=== PATIENT | male | born 1945 | race Caucasian/White ===

== ENCOUNTER → 2018-04-24 | Outpatient (CLI) | payer MEDICARE ==
--- NOTE | 2018-04-24 15:21 | PN ---
PROGRESS NOTE Hilton is 70 with obstructive sleep apnea, severe with an AHI of 87, currently on a BiPAP pressure of 18/14. Doing well. No complaints at all. He is using the Gross LT nose pillows and he is looking for alternatives. He is averaging more than 6 hours of sleep every night. He goes to bed around 11 o'clock, wakes up between 5 and 6 o'clock in the morning. He wakes up refreshed and alert during the day. No major hypersomnia or sleepiness and treatments continues to be successful and the patient is still benefitting from the treatment. He is seeking alternative masks, however, other than the Gross LT. His current [place] Score is at 9. PHYSICAL EXAMINATION: His current vital signs are as follows: His BP is 121/54, pulse 76, respirations 16, temperature 97.7, saturation 95% on room air. GENERAL APPEARANCE: Calm, comfortable, no acute distress. Head is atraumatic, normocephalic. NECK: Supple. Short Mallampati class IV. There is no goiter or neck mass. LUNGS: Clear to auscultation. HEART: Sounds regular rhythm. Normal S1, S2. No S3. No murmurs. ABDOMEN: Soft, nontender. No organomegaly. EXTREMITIES: No edema. No cyanosis or clubbing. NEUROLOGIC: AO x3. No focal neurological deficits. SKIN: Negative for any wounds or ulcerations. PSYCHIATRIC: Negative for anxiety or depression. REVIEW OF SYSTEMS: 12-point review of system was done and the findings were essentially negative. IMPRESSION: 1. Severe obstructive sleep apnea with an AHI of 87. Continue using successful BiPAP therapy pressure of 18/14 utilizing a nose pillow. 2. Obesity with a BMI of 44. 3. Hypersomnia improved with BiPAP therapy. Current [place] score is 9. 4. Moderate severe periodic limb movements not associated with arousals. 5. Comorbidities including diabetes mellitus, hyperlipidemia, gout, hypertension, osteoarthritis and benign prostatic hypertrophy. PLAN: 1. Continue BiPAP at this pressure of 18/14. 2. Offered this patient a Gross FX nose pillow. 3. Encourage weight loss. 4. Treatment continues to be successful. See me back in a year's time or earlier if needed. MMODL / IJN: [id number] /
== END | disposition home or self-care (01) ==
LOC: SLEEP 13:18
PROVIDERS: ATTEND Internal Medicine Critical Care Medicine
DX: G47.33 Obstructive sleep apnea (adult) (pediatric) (principal); E66.9 Obesity, unspecified; G47.61 Periodic limb movement disorder; E78.5 Hyperlipidemia, unspecified; E11.9 Type 2 diabetes mellitus without complications; I10 Essential (primary) hypertension; M10.9 Gout, unspecified; N40.0 Benign prostatic hyperplasia without lower urinary tract symptoms; M19.90 Unspecified osteoarthritis, unspecified site; Z99.89 Dependence on other enabling machines and devices; Z68.41 Body mass index [BMI] 40.0-44.9, adult

== ENCOUNTER → 2019-07-30 | Outpatient (CLI) | payer MEDICARE, OTHER ==
--- NOTE | 2019-07-30 17:28 | PN ---
PROGRESS NOTE Hilton is a 73-year-old male patient with known history of severe obstructive sleep apnea with an AHI of 87. He continues to use an older-generation BiPAP unit which is set at a pressure of 18/14 cm of water. This is a REM Star unit. Unfortunately his machine has become noisy and at times is quitting and seems to be malfunctioning. For that reason, the patient came in for further advice. He is very interested in updating his BiPAP unit. He is currently using a DreamWear [id number] medium-sized nose pillow and he likes his mask. This was given to him during his last visit and he has been using it on a regular basis without any major difficulties. Otherwise the patient is doing well. No specific complaints. His current [place] score is 9. His weight is 432, which is slightly higher compared to the last measurement in 2016. He seems to be gaining weight and he is up by around 15 pounds. No morning headaches. No tiredness or sleepiness, especially when he wears his BiPAP. He has been compliant with his BiPAP therapy for many years, and he is very interested in updating his machine. His last titration was done in 2016, during which he was given the pressure of 18/14, and he was getting all of his supplies through [facility]. No angina. No palpitations. No heartburn. No signs of any decompensated heart failure at this point in time. REVIEW OF SYSTEMS: Fourteen-point review of systems was done. Positive findings are weight gain on the order of 15 pounds over the past 2 years. No angina. No palpitations. No shortness of breath. No chest pain. He has had some chronic swelling in the lower extremities. No acute gouty attacks. No falls. No head trauma. No anxiety or depression. He has nocturia related to his underlying BPH. PHYSICAL EXAMINATION: VITAL SIGNS: BP is 138/64, pulse 70, respirations 16, temperature 97.1, saturation 95% on room air. Height is 6 feet 0 inches. Weight is 342, BMI 46.3. GENERAL APPEARANCE: Calm, comfortable. HEAD: Atraumatic, normocephalic. NECK: Supple. No JVD. No goiter or neck masses. Mallampati class IV. LUNGS: Clear to auscultation. HEART: Heart sounds are regular rate and rhythm. Normal S1, S2. No S3, S4. No murmurs. ABDOMEN: Soft, nontender. No organomegaly. EXTREMITIES: Trace edema. There is no cyanosis or clubbing. NEUROLOGIC: Alert and oriented x3. No focal neurological deficits. PSYCHIATRIC: Negative for anxiety or depression. SKIN: Negative for any wounds or ulceration. IMPRESSION: 1. Severe obstructive sleep apnea with apnea/hypopnea index of 78, maintained on a BiPAP pressure of 18/14 cm of water. Titration was done in 2016. The patient has need for a newer BiPAP unit. 2. Obesity with a body mass index of 46.3 with an interval 15-pound weight gain over the past 2 years. 3. Moderate to severe periodic limb movements not associated with any arousals. 4. Chronic hypersomnia and sleepiness, improved while on BiPAP. 5. Diabetes mellitus. 6. Hyperlipidemia. 7. Gout. 8. Hypertension. 9. Osteoarthritis. 10.Benign prostatic hypertrophy. PLAN: 1. Will order this patient a new BiPAP unit which will be set at a pressure of 18/14 cm of water. 2. We will keep him on a DreamWear [id number] medium-sized mask. 3. Encourage weight loss. 4. Optimize sleep hygiene measures. 5. Treat comorbidities. 6. See me back in 30 to 90 days after obtaining a new BiPAP unit for a compliancy check. Overall condition is stable. The patient will be encouraged to lose weight. Will continue to follow. MMLEELAL / KIMN: [id number] /
== END ==
LOC: SLEEP 13:23
PROVIDERS: ATTEND Internal Medicine Critical Care Medicine
DX: G47.33 Obstructive sleep apnea (adult) (pediatric) (principal); E66.9 Obesity, unspecified; E11.9 Type 2 diabetes mellitus without complications; E78.5 Hyperlipidemia, unspecified; M10.9 Gout, unspecified; I10 Essential (primary) hypertension; M19.90 Unspecified osteoarthritis, unspecified site; N40.0 Benign prostatic hyperplasia without lower urinary tract symptoms; Z68.42 Body mass index [BMI] 45.0-49.9, adult